=== PATIENT | female | born 1950 | race Caucasian/White ===

== ENCOUNTER 2020-12-20 08:11 | Observation (INO) ==
--- NOTE | 2020-12-14 13:41 | Anesthesiology Consultation ---
Date of Service December 14, 2020 Assessment & Plan (1) Encounter for pre-operative examination: Chart Review Chart Review: Acceptable Risk for Surgery (pending preop Covid testing ) and Patient NOT seen in Pre Admission Testing Per nursing assessment 11/27/2020, pt resides in [facility]. Pt's spouse works in [employer] (he follows his employer's PPE guidelines). Pt does travel to [place] and [facility] to grocery shop. Wears mask, uses good hand hygiene and socially distances. Pt denies any known Covid infection in the past 90 days. No known Covid positive contacts or Covid related symptoms. Covid testing 12/14/2020 = results pending. History Surgery Operation Date: 12/20/20 10:40 Proposed Procedures p Left Total Knee Arthroplasty - Jose Alfredo Hodge MD Height/Weight Height: 5 ft 8 in Weight: 99.79 kg Allergies Allergy/AdvReac Type Severity Reaction Status Date / Time codeine Allergy Unknown HIVES. HAS Verified 11/27/20 12:25 TAKEN MORPHINE W/O PROBLEMS. Medications Home Medications Medication Instructions Recorded Confirmed Last Taken trazodone 50 mg PO HS 09/24/20 11/27/20 Unknown acetaminophen [Tylenol Arthritis] 1,300 mg PO Q12H PRN 11/27/20 11/27/20 Unknown Past Medical History Medical History GERD (gastroesophageal reflux disease) Osteoarthritis Scabies HX 10/2020-COMPLETED REGIMEN OF IVERMECTIN 11/26/20 Sleep apnea CPAP Spinal stenosis Stress incontinence, female Past Surgical History Surgical History History of cholecystectomy History of colonoscopy History of dilatation and curettage History of esophagogastroduodenoscopy (EGD) History of tooth extraction History of total shoulder replacement LEFT Hx of bilateral cataract extraction Hx of ovarian cystectomy X2 Status post right knee replacement Social History Smoking Status: Former smoker Do You Dip or Chew Tobacco: No Smoking End Date: QUIT 1983 Hx Alcohol Use: Yes Alcohol type: wine alcohol intake frequency: 0-2 drinks per day Hx Substance Use: No substance use type: does not use Testing Laboratory Results Laboratory Tests 12/14/20 12/14/20 12/14/20 09:30 09:30 09:30 WBC 4.53 L Hgb 14.1 Hct 42.4 Plt Count 165 PT 10.3 INR 1.0 Sodium 142 Potassium 4.0 Chloride 108 H Carbon Dioxide 31 BUN 19 H Creatinine 0.57 L Glucose 70 12/14/20= T&S: A negative, antibody negative Electrocardiogram Date: 10/08/20 Findings: + NSR @ (76bpm) Compared with EKG from 2010, QT has lengthened per cardio. Chest X-Ray Date: 10/08/20 Findings: + NAD Minimal left basilar opacity favors atelectasis.
--- NOTE | 2020-12-15 14:25 | History and Physical Report ---
DATE OF ADMISSION: 12/20/2020 CHIEF COMPLAINT: Left knee pain, discomfort, stiffness. HISTORY OF PRESENT ILLNESS: The patient is a 70-year-old female who is well known to me from previous right knee replacement done back in 2010. Over the past several years, she has developed increased pain and discomfort in her left knee. She has been through extensive medical management including medicines as well as injections, which have become less successful over time. She describes global pain in her knee. The more she is up on it, the more it hurts and it swells. She used to walk 3 miles or so a day, but cannot walk more than a couple blocks without pain. She limps more as the day goes on. She would like to have her left knee fixed. PAST MEDICAL HISTORY: Significant for: 1. Mild obesity with a BMI of 34. 2. Sleep apnea. 3. Gastroesophageal reflux disease. PAST SURGICAL HISTORY: Include: 1. Right knee replacement 11/22/2010. 2. Left shoulder replacement done in [facility]. 3. Ovarian tumors removed. 4. Cholecystectomy. ALLERGIES: CODEINE. CURRENT MEDICATIONS: Trazodone for sleep. SOCIAL HISTORY: A 70-year-old female. She lives in [facility]. She is . Two drinks per week. Does not smoke. FAMILY HISTORY: Significant for heart disease, uterine cancer, skin cancer and blood clots. REVIEW OF SYSTEMS: Negative for diabetes, neurologic problem, vascular problems or bleeding disorders. No chest pain or shortness of breath. No history of DVT or PE. No known bleeding problems. PHYSICAL EXAMINATION GENERAL: Shows a pleasant, middle-aged female. Looks to be in good health. HEENT: Benign. NECK: Supple with no lymphadenopathy. LUNGS: Clear to auscultation. HEART: Has a regular rate and rhythm. ABDOMEN: Soft, nontender, nondistended. EXTREMITIES: Grossly neurovascularly intact except as follows. Examination of both knees reveals the patient walks with an antalgic gait. She limps on the left side. She has got fairly neutral alignment to her left knee. She has got bony hypertrophy medially and laterally. Small to moderate size knee effusion. Range of motion about 10 degrees short of full extension, about 105 degrees of flexion and pretty stiff in flexion. No pain with hip motion. Examination of the right knee reveals well-healed incision. No effusion. No swelling. Range of motion 0-120. X-RAYS: X-rays of the left knee reviewed. It shows advanced left knee DJD. She had extensive tricompartment disease with extensive osteophytes in all 3 compartments. Right knee replacement looks to be in good position. ASSESSMENT: A 70-year-old white female 9 years out from right knee replacement with several medical comorbidities including sleep apnea, gastroesophageal reflux disease, moderate obesity with advanced left knee degenerative joint disease. She has failed conservative treatment and would like to have her left knee replaced. PLAN: We will take her to the operating room and do a left total knee replacement. The risks and benefits of this procedure were explained to the patient including but not limited to DVT, PE, , infection, neurological injury, vascular injury, bleeding problem, pain, limited range of motion, stiffness, failure to relieve symptoms, incomplete relief of symptoms, need for further surgery in future, fracture, leg length inequality, nerve palsy, etc. The patient understands and desires to proceed. Informed consent was obtained. She will bring her CPAP machine with her to the hospital. She is planning to be discharged to home and do outpatient therapy locally.
[~2020-12-20 08:11] MED LIST: ACETAMINOPHEN 500 MG TAB PO SCH; BUPIVACAINE 0.25% 30 ML VIAL ONE; BUPIVACAINE 0.5 % 5 MG/1 ML PF 10ML VIAL ONE; BUPIVACAINE LIPOSOME/PF 266 MG, BUPIVACAINE/EPINEPHRINE 50 ML, SODIUM CHLORIDE 0.9% 30 ... INFIL SCH; DEXAMETHASONE SOD INJ 4 MG/ML VIAL ONE; EPINEPHrine INJ 1 MG/ML AMP ONE; FAMOTIDINE 20 MG TAB PO SCH; GABAPENTIN 300 MG CAP PO SCH; LR 500ML BOLUS, THEN 15ML/HR IV SCH; LR 60ML/HR IV SCH; METOCLOPRAMIDE HCL 10 MG TABLET PO SCH; MISSING PHYSICIAN SIGNATURE ON ORDER SCH; TRANEXAMIC ACID 1,000 MG **IV Intra-op IV SCH; ceFAZolin 2000MG 2,000 MG/15 ML SYR IV SCH
--- NOTE | 2020-12-20 09:03 | History & Physical Bridge Note ---
Date of Service December 20, 2020 History & Physical Bridge Note I have examined the patient, reviewed the History & Physical and in the interval since the performance of the History & Physical I have noted the following changes of clinical significance: no changes noted
[2020-12-20] MEDS ORDERED: SCOPOLAMINE 1 MG TDSY TD ONE (09:06)
[2020-12-20] MEDS ORDERED: ACETAMINOPHEN 500 MG TAB ONE (09:06)
[2020-12-20] MEDS ORDERED: GABAPENTIN 300 MG CAP ONE (09:06)
[2020-12-20] MEDS ORDERED: FAMOTIDINE 20 MG TAB ONE (09:06)
[2020-12-20] MEDS ORDERED: TRANEXAMIC ACID / 0.7% NACL 1000MG/100ML BAG IV ONE (09:06)
[2020-12-20] MEDS ORDERED: METOCLOPRAMIDE HCL 10 MG TABLET ONE (09:06)
[2020-12-20] MEDS ORDERED: ceFAZolin 2,000 MG/15 ML IV PUSH IV ONE (09:07)
[2020-12-20] MEDS ORDERED: MIDAZOLAM HCL 1 MG/ML 2ML VIAL ONE (09:59)
[2020-12-20] MEDS ORDERED: fentaNYL citrate 100 MCG/2 ML VIAL ONE (09:59)
[2020-12-20] MEDS ORDERED: LIDOCAINE HCL 2% 2 ML VIAL/AMP(20MG/ML) INFIL ONE (09:59)
[2020-12-20] MEDS ORDERED: PROPOFOL IV EMULSION 10 MG/ML 20 ML VIAL IV ONE ×3 (09:59→12:20)
[2020-12-20] MEDS ORDERED: BUPIVACAINE LIPOSOME 1.3% 266 MG/20 ML VIAL ONE (10:56)
[2020-12-20] MEDS ORDERED: BUPIVACAINE 0.25% 30 ML VIAL ONE (10:56)
[2020-12-20] MEDS ORDERED: EPINEPHrine INJ 1 MG/ML AMP ONE (10:56)
[2020-12-20] MEDS ORDERED: BACITRACIN INJ 50,000 UNIT VIAL ONE (10:56)
[2020-12-20] MEDS ORDERED: SODIUM CHLORIDE 0.9% PF 50 ML VIAL ONE (10:56)
[2020-12-20] MEDS ORDERED: fentaNYL citrate 100 MCG/2 ML VIAL IV PRN (11:02)
[2020-12-20] MEDS ORDERED: ePHEDrine sulfate 50 MG/ML AMP IV PRN (11:02)
[2020-12-20] MEDS ORDERED: ONDANSETRON INJ 2 MG/ML 2 ML VIAL IV PRN ×2 (11:02→14:13)
[2020-12-20] MEDS ORDERED: ATROPINE SULFATE 0.1 MG/ML 10ML SYR IV PRN (11:02)
[2020-12-20] MEDS ORDERED: KETAMINE 50 MG/5 ML SYRINGE ONE (11:29)
--- NOTE | 2020-12-20 13:14 | Operative Report ---
Post Operative Report Pre & Post Diagnosis Operation Date: 12/20/20 10:40 Pre-Op Diagnosis: Left Knee Advanced Degenerative Joint Disease Post-Op Diagnosis: Left Knee Advanced Degenerative Joint Disease I identified the patient and participated in the time-out.: Yes Procedure Operation Date: 12/20/20 10:40 Actual Procedures p Left Total Knee Arthroplasty(Left) - Jose Alfredo Hodge MD Surgeon Jose Alfredo Hodge MD Clinical Psychology Teacher WILFREDO Gallegos Estimated Blood Loss 50 Findings Consistent with Post-Op Diagnosis Operative findings were advanced left knee tricompartment DJD. She had extensive grade 4 [id number] disease in all 3 compartments with very erosive disease and a significant osteophytes around the femur, tibia, and patella. She had a moderate to large knee joint effusion. She had a flexion contracture of about 10 to 15 degrees. Fluids 1100 cc. Specimens Left knee sent for pathology. Anesthesia Type Spinal MAC Complications none Disposition Accompanied Patient To Recovery: No Disposition: Recovery Room Indications Patient is a 70-year-old female has had a long history of knee problems. She had a right knee replaced about 10 years ago and is done well from this. Over the past 10 years she developed increased pain discomfort stiffness in her left knee. She failed all conservative measures. X-rays reveal advanced left knee tricompartment DJD. She elected to proceed with surgical treatment. Description of Procedure Operative implants consist of: 1. Biomet Vanguard size 62.5 left posterior stabilized femoral component. 2. Biomet size 71 tibial tray. 3. 10 mm posterior stabilized polyethylene insert. 4. 31 x 8 all polypatella. The patient was taken to the operating identified and placed in the operating table supine position protectors were properly padded. IV antibiotics tried by anesthesia team. A spinal anesthetic and abductor canal block had provided holding area. Delong catheter was placed in sterile fashion. Left thigh turn was then placed in the left lower extremities and prepped draped in usual sterile fashion. The left leg was elevated exsanguinated with use of an Esmarch and turns placed at 300 mmHg. An anterior approach left knee was then performed through longitudinal incision centered over the patella. Sharp dissection Through subcutaneous tissue down the extensor mechanism. A medial parapatellar arthrotomy incision was made. Some subperiosteal dissection was carried out medially. The fat pad was dissected from each patella tendon. Lateral patellofemoral ligament was released. Patella was subluxated laterally and the knee was flexed. The osteophytes were taken off distal femur. The ACL and PCL were then released from the distal femur. Her ACL was really absent. She had a overgrowth of the notch. The tibia subluxate anteriorly. The external treatment line jig was then placed in the interface the tibia and adjusted 12 mm medially. Proximal tibial cut was made to remove about 3 to 4 mm of bone from the medial side. Tibia sized to a size 71. Attention drawn the femur. The distal femur during the sharp drill bit intramedullary canal was suction. A left 5 degree valgus cutting guide was placed. This femoral cutting block was pinned in place. Distal femoral cut was made to take an additional 5 mm off the distal femur due to her flexion contracture. Femur was then sized to a size 62.5. The AP cutting block was pinned parallel to the epicondylar axis which was 6 degrees of external rotation. Anterior cut, anterior chamfer, posterior cut, posterior chamfer cuts were made. Box cutting guide was placed in just slight lateral box cut was made. The knee was flexed. The remnants of the medial lateral menisci were excised. The osteophytes were taken off the posterior aspect of the femur. A trial femoral component was placed. The tibial tray was pinned in maximum external rotation and the drill and stem punch were used to create defect in proximal tibia for the tibial tray. Knee was then trialed and the 10 mm insert fit most appropriately. Attention drawn the patella. Patella was cleaned of all soft tissues. Patella thickness measured 23 mm in thickness was cut down to 13. We removed a lot of osteophytes around the patella. Patella was sized to a size 31 patella. Locals were drilled for 31 patella. The lateral osteophyte is moved. Patella button was placed. Knee was taken through range of motion and the patella tracked nicely with no thumbs test. Attention drawn to placing permanent components. All trial components were removed. Bone plug was placed in the distal femur limit blood loss. A double batch of Palacos G cement was mixed. BiomAltair Prepard size 62.5 left posterior stabilized femoral component, size 71 tibial tray, a 10 mm posterior stabilized polyethylene insert, and 31 x 8 all polypatella then cemented in place. Knee was brought out into full extension total cement hardened. Final cement check was then performed. Pericapsular tissues were injected with total 100 cc of combination of 20 cc of Exparel, 30 cc normal saline, 50 cc of quarter percent Marcaine with epinephrine. Patient did receive 1 g tranexamic acid. The tourniquet was then let down for final tourniquet time of 58 minutes. Hemostasis assured use electrocautery. The wounds once again irrigated. Extensor mechanism closed with combination 1 PDS suture #1 Vicryl suture in [id number] fashion. Extensor mechanism checked found to be intact the subcutaneous tissue then closed with 2 Dexon suture in a buried interrupted fashion skin was closed skin emperatriz. Leg was then cleaned dried and sterile dressed composed Xeroform, 4 x 4's, sterile cast padding, Bong bandage were applied. Patient then transferred to the recovery room in stable condition. Patient tolerated the procedure well and there were no complications. Alfred Gallegos, my physician university administrative assistant, was present for the entire procedure. His assistance was essential and required for appropriate patient positioning, prepping and draping, surgical exposure, performing the technical details of the operation, placement the implants, closure of the wound, and placement of the sterile bandage. I attest to the content of the Intraoperative Record and any orders documented therein. Any exceptions are noted below.
--- NOTE | 2020-12-20 13:36 | XRay Report ---
XR knee LT 1 or 2V routine CLINICAL HISTORY: Surgical Post Op COMPARISON: June 2020 DISCUSSION: There are postsurgical changes of a total left knee arthroplasty and patellar resurfacing . The femoral tibial components appear well seated. There are overlying skin emperatriz. There is gas wi thin the soft tissues consistent with recent surgery. IMPRESSION: Postsurgical changes of a total left knee arthroplasty. ACT 112: Negative or not required by law. Electronically signed by: Carlos Holm M.D. 12/20/2020 1:34 PM
--- NOTE | 2020-12-20 13:56 | Anesthesiology Progress Note ---
Date of Service December 20, 2020 Anesthesia Post Procedure Vital Signs Vital Signs: Temp Pulse Resp BP Pulse Ox 12/20/20 13:50 36.6 C 66 17 116/60 93 12/20/20 13:40 36.6 C 65 24 108/60 94 12/20/20 13:30 68 15 114/61 96 12/20/20 13:20 36.5 C 69 16 106/55 L 98 12/20/20 13:11 36.5 C 71 H 101/60 18 L 12/20/20 08:48 36.7 C 75 20 164/82 H 96 Transfer of Care Handoff Completed per policy Notes Mental Status: alert / awake / arousable Patient Amnestic to Procedure: Yes Nausea / Vomiting: adequately controlled Pain: adequately controlled Airway Patency, RR, SpO2: stable & adequate BP & HR: stable & adequate Hydration State: stable & adequate Neuraxial Anesthesia: was administered and sensory block is resolving Anesthetic Complications: no major complications apparent and Pt Satisfied with anesthetic care
[2020-12-20] MEDS ORDERED: MAGNESIUM HYDROXIDE SUSP 30 ML UDC PO PRN (14:13)
[2020-12-20] MEDS ORDERED: HYDROmorphone INJ 0.5 MG/0.5 ML SYR IV PRN (14:13)
[2020-12-20] MEDS ORDERED: METOCLOPRAMIDE HCL INJ 5 MG/ML 2 ML VIAL IV PRN (14:13)
[2020-12-20] MEDS ORDERED: bisacodyL 10 MG SUPP PR PRN (14:13)
[2020-12-20] MEDS ORDERED: oxyCODONE HCL IR 5 MG TAB (IMMEDIATE RELEASE) PO PRN (14:13)
[2020-12-20] MEDS ORDERED: ALUMINUM/MAGNESIUM SUSP 30 ML UDC PO PRN (14:13)
[2020-12-20] MEDS ORDERED: NALOXONE HCL 0.4 MG/1 ML VIAL/CARP IV PRN (14:13)
[2020-12-20] MEDS: SODIUM CHLORIDE 0.9% 1000ML 1,000 ML IV SCH (15:10)
[2020-12-20] MEDS: KETOROLAC TROMETHAMINE 15 MG/ML VIAL IV SCH ×2 (15:11→22:28)
[2020-12-20] MEDS: ACETAMINOPHEN 500 MG TAB PO SCH ×2 (15:12→22:31)
[2020-12-20] MEDS ORDERED: Scopolamine CHECK PATCH PLACEMENT SCH (16:00)
--- NOTE | 2020-12-20 16:08 | Progress Notes ---
DATE: 12/20/2020 SUBJECTIVE: A 70-year-old female postoperative from a left knee replacement. She is doing well. Not having any pain yet. No chest pain or shortness of breath. Not feeling dizzy or lightheaded. OBJECTIVE: VITAL SIGNS: Temperature 36.6. Vital signs are stable. GENERAL: Shows a pleasant, middle-aged female. She is sitting up in bed and looks quite comfortable. LUNGS: Clear to auscultation. HEART: Has a regular rate and rhythm. ABDOMEN: Soft, nontender, nondistended. EXTREMITIES: Grossly neurovascularly intact except as follows: Examination of the left leg reveals the leg to be well aligned. Her dressing is clean, dry and intact. She can dorsiflex and plantarflex her foot appropriately. She has got brisk refill. X-RAYS: X-rays of the left knee from recovery room are reviewed. It shows left cemented posterior stabilized total knee arthroplasty. Components looked to be in good position. No signs of problems. ASSESSMENT: A 70-year-old female postoperative from a left knee replacement, doing well. Her pain is controlled. She is neurologically intact. PLAN: 1. DVT prophylaxis including thigh-high TEDs, SCDs, and aspirin twice a day. 2. PT/OT. Weight bear as tolerated. Left total knee protocol. 3. Pain control, doing well with current pain regimen. 4. IV antibiotics x24 hours. 5. Disposition: Plan to discharge to home and she is going to do outpatient therapy locally.
[2020-12-20] MEDS: Scopolamine CHECK PATCH PLACEMENT SCH (16:47)
[2020-12-20] MEDS: FERROUS GLUCONATE 324 MG TAB PO SCH (17:36)
[2020-12-20] MEDS: ASCORBIC ACID 500 MG TAB PO SCH (17:37)
[2020-12-20] MEDS: ceFAZolin 2000MG 2,000 MG/15 ML SYR IV SCH (17:37)
[2020-12-20] MEDS ORDERED: TRANEXAMIC ACID / 0.7% NACL 1,000 MG/100 ML BAG IV SCH (19:00)
[2020-12-20] MEDS ORDERED: SENNA 8.6 MG TAB PO SCH (21:00)
[2020-12-20] MEDS ORDERED: traZODone HCL 50 MG TAB PO SCH (21:00)
[2020-12-20] MEDS: TAPENTADOL HCL ER 50 MG TABCR PO SCH (22:28)
[2020-12-20] MEDS: DOCUSATE SODIUM 100 MG CAP PO SCH (22:29)
[2020-12-20] MEDS: ASPIRIN 81 MG ECTAB PO SCH (22:30)
[2020-12-21] MEDS: Scopolamine CHECK PATCH PLACEMENT SCH ×2 (01:27→08:46)
[2020-12-21] MEDS: SODIUM CHLORIDE 0.9% 1000ML 1,000 ML IV SCH (01:28)
[2020-12-21] MEDS: ceFAZolin 2000MG 2,000 MG/15 ML SYR IV SCH (02:18)
[2020-12-21] MEDS: KETOROLAC TROMETHAMINE 15 MG/ML VIAL IV SCH ×2 (04:31→10:05)
[2020-12-21] MEDS: ACETAMINOPHEN 500 MG TAB PO SCH ×2 (05:46→13:21)
[2020-12-21 06:29] LABS: Hemoglobin 10.5 g/dL (12.0-16.0); Mean Corpuscular Hemoglobin 28.8 pg (25-34); Mean Corpuscular Hgb Conc 33.9 g/dL (32-36); Mean Corpuscular Volume 84.9 fL (80-100); Mean Platelet Volume 9.8 fL (7.4-10.4); Platelet Count 139 K/uL (130-400); RDW Coefficient of Variation 12.8 % (11.5-14.5); RDW Standard Deviation 39.6 fL (36.4-46.3); Red Blood Count 3.65 M/uL (4.2-5.4); White Blood Count 8.25 K/uL (4.8-10.8)
[2020-12-21 07:09] LABS: BUN Creatinine Ratio 36.8 (10-20); Calcium 8.6 mg/dl (8.5-10.1); Est GFR (African American) 109.9; Est GFR (Non-African American) 94.9; Potassium 4.1 mmol/L (3.5-5.1)
[2020-12-21] MEDS ORDERED: dexAMETHasone 4 MG TAB PO SCH (08:00)
[2020-12-21] MEDS: ASCORBIC ACID 500 MG TAB PO SCH (08:45)
[2020-12-21] MEDS: TAPENTADOL HCL ER 50 MG TABCR PO SCH (08:45)
[2020-12-21] MEDS: ASPIRIN 81 MG ECTAB PO SCH (08:45)
[2020-12-21] MEDS: DOCUSATE SODIUM 100 MG CAP PO SCH (08:45)
[2020-12-21] MEDS: FERROUS GLUCONATE 324 MG TAB PO SCH (08:46)
[2020-12-21] MEDS ORDERED: MULTIVITAMIN TAB PO SCH (09:00)
[2020-12-21 12:32] VITALS: BP 124/76; PULSE 76; TEMP 98.8; O2SAT 96
--- NOTE | 2020-12-21 13:40 | Progress Notes ---
DATE: 12/21/2020 SUBJECTIVE: A 70-year-old female now postop day 1 from a left knee replacement. She is doing pretty well. Had a little trouble last night when she first got up with dizziness, but much better this morning. Therapy went well. Pain is controlled. She is wanting to go home. OBJECTIVE: VITAL SIGNS: Temperature is 37.1. Vital signs stable. GENERAL: Shows a pleasant, middle-aged female, obese, sitting up in her bedside chair, looks comfortable. LUNGS: Clear to auscultation. HEART: Regular rate and rhythm. ABDOMEN: Soft, nontender, nondistended. EXTREMITIES: Grossly neurovascularly intact except as follows. Examination of the left leg reveals the dressing to be clean, dry and intact. She can dorsiflex and plantarflex her foot appropriately. She can do a good straight leg raise. LABORATORY DATA: Hemoglobin 10.5, hematocrit 31.0. Electrolytes are stable. ASSESSMENT: A 70-year-old white female postop day 1 from left knee replacement, doing pretty well. Pain is controlled. She is a little bit anemic, but asymptomatic. PLAN: 1. DVT prophylaxis including thigh-high TEDs, SCDs, and aspirin twice a day. 2. PT/OT. Weight bear as tolerated. Left total knee protocol. 3. Pain control, doing well with current pain regimen. 4. Anemia. Continue iron supplementation. 5. Disposition: Plan to discharge to home and she is going to do outpatient therapy later today.
--- NOTE | 2020-12-24 06:27 | Discharge Summary ---
Date of Service December 24, 2020 Discharge Data Consultations 12/20/20 14:13 Consult Case Management - Discharge Planning Routine Procedures Performed Operation Date: 12/20/20 10:40 Actual Procedures p Left Total Knee Arthroplasty(Left) - Jose Alfredo Hodge MD Hospital Course (1) Status post total left knee replacement: This patient is a 70 year old female admitted on 12/20/20 and underwent total knee arthroplasty. She tolerated the procedure well and there were no complications. Transferred to the PACU post op and later to the orthopedic floor for further care. She was given ancef for antibiotic prophylaxis. She was also given MARTIN stockings, SCDs, and aspirin for DVT prophylaxis. Hemoglobin, hemato crit, and vital signs were monitored during her hospital stay and remained stable. She did have some mild anemia and received an iron supplement. Did not require any blood transfusions. There were no complications during her hospital stay. By post op day #1 the patient was tolerating a regular diet, pain was reasonably controlled with oral pain medicine, and she was participating in physical the rapy. On post op day #1 the patient was discharged home. She was given printed discharge instructions including prescriptions for extra strength tylenol, aspirin, iron supplementation, and oxycodone. Continue physical therapy, weight bearing as tolerated. Continue MARTIN stockings. Follow up approximately 2 weeks post op or sooner if there are problems or concerns. Coding Level of Care Code None Diagnoses Status post total left knee replacement Z96.652
== END 2020-12-21 14:52 | disposition home or self-care (01) ==
LOC: ASU 08:11 → 3E 08:11
DX: E66.9 Obesity, unspecified; Z88.5 Allergy status to narcotic agent; K21.9 Gastro-esophageal reflux disease without esophagitis; M17.12 Unilateral primary osteoarthritis, left knee; Z68.34 Body mass index [BMI] 34.0-34.9, adult; Z96.612 Presence of left artificial shoulder joint; M65.9 Synovitis and tenosynovitis, unspecified; Z96.651 Presence of right artificial knee joint; Z87.891 Personal history of nicotine dependence; G47.33 Obstructive sleep apnea (adult) (pediatric); Z99.89 Dependence on other enabling machines and devices